=== PATIENT | male | born 1990 | race Caucasian/White ===

== ENCOUNTER → 2020-06-03 11:04 | Outpatient (CLI) | payer OTHER, SELFPAY ==
[2020-06-03 20:43] LABS: SARS-CoV-2 RNA PCR Negative
== END ==
PROVIDERS: PCP Family Medicine; Visit Provider Family Medicine
DX: Z20.822 Contact with and (suspected) exposure to COVID-19 (principal)
CPT/HCPCS: C9803; U0003; U0005

== ENCOUNTER 2021-09-21 10:06 | Emergency (ER) | payer OTHER, SELFPAY ==
--- NOTE | 2021-09-21 10:24 | ED.EYEPROB ---
HPI - Eye Problem General Chief complaint: Eye Problems Stated complaint: stye lt eye Time Seen by Provider: 09/21/21 10:24 Source: patient, RN notes reviewed and old records reviewed Mode of arrival: ambulatory Limitations: no limitations History of Present Illness HPI Narrative: 31 year old male who presents to [facility] care with complaints of left eye stye to upper eyelid for the past 1.5 months. Patient reports that he has been applying warm compresses and using OTC stye drops with symptoms worsening in the past 5 days. Patient denies any change in his vision with visual acuity left eye 20/15. right 20/20 without corrective lens chief complaint: other (Stye left eye) Onset (ago): month(s) (1.5) Onset description: gradual Location: left eye Severity scale (1-10): 1 If Pain, Quality: aching Treatments Prior to Arrival: OTC eye drops and other (warm compresses) Related Data Allergies Allergy/AdvReac Type Severity Reaction Status Date / Time amoxicillin Allergy Unknown Verified 09/21/21 10:30 KIDDIE COCKTAIL Allergy Unknown Uncoded 09/21/21 10:30 (JAMIE MENDEZ) Review of Systems Review of Systems: CONSTITUTIONAL: Denies fever, chills, or sweats. EYES: Denies visual changes, redness to left upper eyelid with raised red lesion, no discharge. ENT: Denies rhinorrhea, congestion, sore throat, or otalgia. CARDIOVASCULAR: Denies chest pain, palpitations, or edema. RESPIRATORY: Denies cough or dyspnea. GASTROINTESTINAL: Denies abdominal pain, nausea, vomiting, or diarrhea. GENITOURINARY: Denies dysuria or hematuria. SKIN: Denies rash or itching. MUSCULOSKELETAL: Denies back pain, joint pain, or myalgia. NEUROLOGIC: Denies headache, numbness, or weakness. PSYCHIATRIC: Denies anxiety or depression. All systems reviewed & are unremarkable except as noted in HPI and below PMFSH Past Medical History Medical History (Updated 09/21/21 @ 10:54 by Amara Woodall NP) Bilateral elbow fractures Fracture of left zygomatic arch Nasal fracture Open fracture of left forearm surgical repair Open fracture of left hip with natacha and pins Osteogenesis imperfecta type I Stye Social History Social History (Updated 09/21/21 @ 10:46 by Amara Woodall NP) Smoking status: Never smoker Alcohol intake: current Alcohol use details: rare Substance use: never Living arrangements: with family Gender identity (if verbalized by the patient): Male Comments At time of signature, agree with nursing past medical, surgical, social and family history. There is no relevant family history pertinent to the presenting complaint Exam Narrative: GENERAL: Well-appearing, well-nourished, and in no acute distress. HEAD: Normocephalic, atraumatic. EYES: PERRLA and EOMI. swelling and redness to left upper eyelid with raised lesion, no drainage noted,no visual changes visual acuity left eye 20/15, right 20/20 no corrective lens ENT: Nares clear, no rhinorrhea or epistaxis. Mucous membranes moist.TM's normal with good light reflex, throat pink with no lesions or exudates or tonsil swelling. NECK: Supple. no lymphadenopathy CHEST: Clear to auscultation. No respiratory distress.SAO2 99% on room air HEART: Regular rate and rhythm. No murmur heard. Normal peripheral pulses. ABDOMEN: Soft, nontender, nondistended, normal active bowel sounds. EXTREMITIES: Normal range of motion. No edema. SKIN: Warm, dry, no rash. NEURO: No focal deficits. Alert and oriented x3. Course Course Level of Care: Express Care Visit MDM - Eye Problem Differential Diagnosis Differential diagnosis: Likely corneal abrasion, conjunctivitis, periorbital cellulitis and other (Stye, chalazion) Medical Records Attestation: I reviewed the patient's medical records. Lab Data Attestation: I reviewed the patient's lab results. Critical Care Time Critical Care Time Critical Care Time: No Discharge Plan Discharge Clinical Impression: Hordeolum externum left upper eyel
[2021-09-21 10:25] VITALS: BP 130/77; PULSE 65; RESP 18; TEMP 37.3; O2SAT 99
== END 2021-09-21 10:44 | disposition home or self-care (01) ==
PROVIDERS: Emergency Provider Registered Nurse
DX: H00.014 Hordeolum externum left upper eyelid (principal)
CPT/HCPCS: 99213; G0463

== ENCOUNTER 2022-07-11 09:00 | Emergency (ER) | payer OTHER, SELFPAY ==
[2022-07-11 09:14] VITALS: BP 109/84; PULSE 80; RESP 18; TEMP 36.3; O2SAT 100
--- NOTE | 2022-07-11 09:42 | ED.URI ---
HPI - URI/Sore Throat General Chief Complaint: Upper Respiratory Infection Stated Complaint: Sore Throat,Cough,Fatigue,Body Aches Source: patient Mode of arrival: ambulatory Limitations: no limitations History of Present Illness HPI Narrative: 32-year-old male presents to [facility] with complaints cough, sore throat, body aches, chills, runny nose and nasal congestion for the past 3 days. Patient reports that he took [id number] Tylenol day 1 but has not tried taking any over the counter medications for his symptoms since then. Patient denies fever, wheezing, nausea, vomiting or diarrhea. Patient reports that his daughter was diagnosed with croup 1 week ago. Patient reports that his mother and currently have similar cold-like symptoms. Patient is a nonsmoker. Patient denies recent trauma. MD elicited complaint: sore throat, rhinorrhea and nasal congestion Onset (ago): day(s) (3) Able to tolerate fluids by mouth: Yes Exacerbating factors: swallowing Treatments prior to arrival: acetaminophen Related Data Allergies Allergy/AdvReac Type Severity Reaction Status Date / Time amoxicillin AdvReac Mild Hives Verified 07/11/22 09:04 KIDDIE COCKTAIL AdvReac Mild Hives Uncoded 07/11/22 09:04 (JAMIE MENDEZ) Review of Systems Constitutional: Constitutional: Reports chills, Reports fatigue, Denies fever(s) and Denies weakness ENT: Denies dizziness, Denies epistaxis, Reports nasal congestion and Reports sore throat Respiratory: Respiratory: Denies chest congestion, Reports cough, Reports dyspnea and Denies wheezing Gastrointestinal: Gastrointestinal: Denies diarrhea, Denies nausea and Denies vomiting Integumentary/Breasts: Skin/Breast: Denies rash Neurologic: Denies dizziness, Denies syncope and Denies headache(s) [facility] Past Medical History Medical History Bilateral elbow fractures Fracture of left zygomatic arch Nasal fracture Open fracture of left forearm surgical repair Open fracture of left hip with natacha and pins Osteogenesis imperfecta type I Stye Social History Social History Smoking status: Never smoker Alcohol intake: current Alcohol use details: rare Substance use: never Living arrangements: with family Gender identity (if verbalized by the patient): Male Comments At time of signature, I agree with nursing past medical, surgical, social and family history. There is no relevant family history pertinent to the presenting complaint. Exam Const: General: healthy appearing and no acute distress Nutritional Appearance: well nourished Orientation/consciousness: patient oriented x3 Limitations: no limitations HENMT: Head: normal to inspection Ears: external ears normal, TM's normal bilaterally and EAC's normal Face/Nose/Sinus: Normal external nose present and Normal nares present Mouth: Yes Normal oral and palatal mucosa present, Yes lip normal and Yes moist mucous membranes Throat: uvula midline Other: Mild erythema noted to posterior pharynx. Tonsils appear within normal limits Eyes: Conjunctivae: conjunctivae normal Neck: Neck: normal visual inspection Resp: Effort & Inspection: normal respiratory effort and not labored Auscultation: clear to auscultation bilaterally, no crackles, no rales and no rhonchi Cardio: Rate: regular rate Rhythm: regular rhythm Heart sounds: no murmurs Skin: General skin exam: normal color Neuro: General: patient oriented x3 Speech: normal speech Gait exam (Neuro): Normal gait present Psych: Affect: normal affect Attitude: cooperative Course Course Level of Care: Express Care Visit Vital Signs Vital signs: Vital Signs Temperature 36.3 C L 07/11/22 09:14 Pulse Rate 80 07/11/22 09:14 Respiratory Rate 18 07/11/22 09:14 Blood Pressure 109/84 07/11/22 09:14 Pulse Oximetry 100 07/11/22 09:14 Oxygen Delivery Ro
== END 2022-07-11 09:50 | disposition home or self-care (01) ==
PROVIDERS: Emergency Provider Nurse Practitioner Family
DX: B34.9 Viral infection, unspecified (principal); Z20.822 Contact with and (suspected) exposure to COVID-19; Q78.0 Osteogenesis imperfecta
CPT/HCPCS: 87081; 87426; 87880; 99213; C9803; G0463

== ENCOUNTER 2022-11-11 18:19 | Emergency (ER) | payer OTHER, SELFPAY ==
--- NOTE | ~2022-11-11 | XR_ITS ---
EXAMINATION: XR ankle RT min 3V INDICATION: Right ankle pain TECHNIQUE: Four views of the right ankle are obtained. COMPARISON: None available FINDINGS: Bone alignment is normal. There is no fracture. The soft tissues are unremarkable. IMPRESSION: 1. No acute osseous abnormality. Reviewed, dictated and finalized at location F.
[2022-11-11 18:22] VITALS: BP 146/86; PULSE 90; RESP 18; TEMP 36.3; O2SAT 100
--- NOTE | 2022-11-11 18:43 | ED.LOWEXIN ---
HPI - Extremity Injury (Lower) General Chief Complaint: Extremity Injury, Lower <Morenita Andersen APRN - Last Filed: 11/11/22 21:11> Stated Complaint: Right Ankle Injury <Morenita Andersen APRN - Last Filed: 11/11/22 21:11> Time Seen by Provider: 11/11/22 18:40 <Morenita Andersen APRN - Last Filed: 11/11/22 21:11> Source: patient <Morenita Andersen APRN - Last Filed: 11/11/22 21:11> Mode of arrival: ambulatory <Morenita Andersen APRN - Last Filed: 11/11/22 21:11> Limitations: no limitations <Morenita Andersen APRN - Last Filed: 11/11/22 21:11> History of Present Illness HPI Narrative: Patient is a very pleasant 32-year-old male with a past medical history of osteogenesis imperfecta who presents emergency department today by private vehicle ambulatory with a slight limp for evaluation of pain to the back of the right ankle. The pain started while playing basketball he denies any traumatic fall occurring he states that suddenly he felt something pop or almost tear & he was not able to bear weight after. He states there is no numbness or tingling & the pain is a 7/10 when moving it or trying to bear weight. He denies any pain to the toes, upper leg or knee. Denies any other symptoms or concerns at this time. He not take anything prior to arrival for pain. <Morenita Andersen APRN - Last Filed: 11/11/22 21:11> Related Data Allergies/Adverse Reactions: Allergies Allergy/AdvReac Type Severity Reaction Status Date / Time amoxicillin AdvReac Mild Hives Verified 11/11/22 18:26 KIDDIE COCKTAIL AdvReac Mild Hives Uncoded 11/11/22 18:26 (DEMEROL,PENERGAN) <Morenita Andersen APRN - Last Filed: 11/11/22 21:11> Review of Systems Review of Systems: CONSTITUTIONAL: Denies fever, chills, or sweats. EYES: Denies visual changes, redness, or discharge. ENT: Denies rhinorrhea, congestion, sore throat, or otalgia. CARDIOVASCULAR: Denies chest pain, palpitations, or edema. RESPIRATORY: Denies cough or dyspnea. GASTROINTESTINAL: Denies abdominal pain, nausea, vomiting, or diarrhea. GENITOURINARY: Denies dysuria or hematuria. SKIN: Denies rash or itching. MUSCULOSKELETAL: Denies back pain, right posterior ankle/achiilles pain. NEUROLOGIC: Denies headache, numbness, or weakness. PSYCHIATRIC: Denies anxiety or depression. <Morenita Andersen APRN - Last Filed: 11/11/22 21:11> All systems reviewed & are unremarkable except as noted in HPI and below <Morenita Andersen APRN - Last Filed: 11/11/22 21:11> PMFSH Past Medical History Medical History: Medical History Bilateral elbow fractures Fracture of left zygomatic arch Nasal fracture Open fracture of left forearm surgical repair Open fracture of left hip with natacha and pins Osteogenesis imperfecta type I Stye <Morenita Andersen APRN - Last Filed: 11/11/22 21:11> Social History Social History: Social History Smoking status: Never smoker Alcohol intake: current Alcohol use details: rare Substance use: never Living arrangements: with family Gender identity (if verbalized by the patient): Male <Morenita Andersen APRN - Last Filed: 11/11/22 21:11> Exam Narrative: GENERAL: Well-appearing, well-nourished, and in no acute distress. sitting up on exam chair. HEAD: Normocephalic, atraumatic. EYES: PERRLA and EOMI. ENT: Nares clear, no rhinorrhea or epistaxis. Mucous membranes moist. NECK: Supple. CHEST: Clear to auscultation. No respiratory distress. HEART: Regular rate and rhythm. No murmur heard. Normal peripheral pulses. 2+ right pedal pulse ABDOMEN: Soft, nontender, nondistended, normal active bowel sounds. EXTREMITIES: decreased ROM to right ankle- there is no tenderness over the medial/ lateral Tenderness/swelling to the right achilles with defect. + Tobias test of the right achilles. no tenderness over the distal tib/fi
[2022-11-11] MEDS: KETOROLAC 30 MG/ML VIAL (*BKC) IM (19:56)
== END 2022-11-11 20:35 | disposition home or self-care (01) ==
PROVIDERS: Emergency Provider Nurse Practitioner; PCP Nurse Practitioner Adult Health
DX: S86.001A Unspecified injury of right Achilles tendon, initial encounter (principal); Q78.0 Osteogenesis imperfecta; X50.9XXA Other and unspecified overexertion or strenuous movements or postures, initial encounter; Y93.67 Activity, basketball
CPT/HCPCS: 29505; 29515; 73610; 96372; 99283; J1885

== ENCOUNTER 2022-11-24 08:02 | Outpatient (CLI) | payer OTHER, SELFPAY ==
--- NOTE | ~2022-11-24 | MR_ITS ---
EXAMINATION: MR ankle RT wo con DATE: 11/24/2022 08:44 INDICATION: Achilles tendon rupture TECHNIQUE: Magnetic resonance imaging (MRI) of the right ankle was performed without intravenous cont rast. Sequences included sagittal, coronal, and axial proton-density weighted fast spin echo without and with fat saturation. COMPARISON: None. FINDINGS: Medial ankle ligaments: Deep and superficial deltoid ligaments as well as the spring ligament are normal. Lateral ankle ligaments: The anterior and posterior inferior tibiofibular ligaments are normal. The anterior talofibular, calc aneofibular and posterior talofibular ligaments are normal. Tendons: Severe Achilles tendinosis with full-thickness tear and approximately 3 cm separation of the ragged t ear margins suggesting a slightly greater degree of posterior retraction. The distal tear margin begi ns approximately 7 cm proximal to the calcaneal insertion. In length along the proximal and distal te ar margins the tendinosis extends 4 cm from the tear margins. There is a tear of the superior peronea l retinaculum resulting in lateral and anterior subluxation of the peroneus longus tendon which lies along the anterolateral margin of the lateral malleolus. The peroneus brevis tendon maintains a deana l course however there is low-lying peroneus brevis muscle belly with the distal most margin of the m yotendinous junction lying 12 mm below the distal tip of the lateral malleolus. There are peroneus lo ngus and brevis tendons are otherwise normal. The tibialis anterior and extensor hallucis longus and extensor digitorum longus tendons are normal. The tibialis posterior, flexor digitorum longus and fle xor hallucis longus tendons are normal. Plantar fascia: Plantar aponeurosis is normal. Bones/other: Bone alignment is normal. No fracture or pathologic marrow replacing process. Mild osteoarthritis at the ankle joint with partial-thickness cartilage loss resulting in mild nonuniform joint space narrow ing anteriorly and with small regions of mild subarticular edema-like signal change at the central as pect of the tibial plafond and anterior margin of the talar dome. Additional mild osteoarthritis at t he talonavicular joint. Fluid: Physiologic amount of fluid in the joint spaces. There is minimal fluid interspersed among the torn A chilles tendon fibers. No tenosynovitis, bursitis or other abnormal fluid collections. IMPRESSION: 1. Full-thickness Achilles tendon tear with severe tendinosis. 2. Tear of the superior peroneal retinaculum with dislocation of the peroneus longus tendon which now lies along the anterolateral margin of the lateral malleolus. Reviewed, dictated and finalized at location A. IMPRESSION: 1. Full-thickness Achilles tendon tear with severe tendinosis. 2. Tear of the superior peroneal retinaculum with dislocation of the peroneus l ongus tendon which now lies along the anterolateral margin of the lateral malle olus.
== END 2022-11-24 08:03 ==
LOC: MICIMG 08:04
PROVIDERS: PCP Orthopaedic Surgery; Visit Provider Orthopaedic Surgery
DX: S86.011A Strain of right Achilles tendon, initial encounter (principal); S96.811A Strain of other specified muscles and tendons at ankle and foot level, right foot, initial encounter; X58.XXXA Exposure to other specified factors, initial encounter
CPT/HCPCS: 73721

== ENCOUNTER 2024-03-26 02:53 | Emergency (ER) | payer OTHER, SELFPAY ==
--- NOTE | ~2024-03-26 | CT_ITS ---
CT of the Abdomen and Pelvis: Indication: Abdominal pain Technique: 2.5 mm axial scans were obtained through the abdomen and pelvis following intravenous adm inistration of 100 cc of Omnipaque 350. Dose reduction technique was used on this scan by utilizing a utomated exposure control and iterative reconstruction technique. The dose-length product (DLP) was 3 29.45 mGy-cm. Findings: Scans through the lung bases are unremarkable. The liver, spleen, pancreas, gallbladder, adrenals and kidneys are within normal limits. No evidence of aortic aneurysm. No lymphadenopathy. No bowel obstruction or bowel wall thickening. Fluid-filled small bowel loops are present in the righ t abdomen. Images through the pelvis were performed. Urinary bladder unremarkable. No pelvic mass seen. No ascit es. Impression: Questionable diarrheal illness. No other significant findings. Reviewed, dictated and finalized at [facility]. LY REQUIREMENTS OFFICER Impression: Questionable diarrheal illness. No other significant findings.
[2024-03-26 02:56] VITALS: BP 139/100; PULSE 113; RESP 20; TEMP 36.7; O2SAT 100
[2024-03-26 03:13] LABS: Basophils Absolute Auto 0.1 K/mm3 (0.0-0.1); Basophils Percent Auto 0.5 % (0.2-1.2); Eosinophils Percent Auto 0.1 % (0-4.4); Hematocrit 47.5 % (42.0-52.0); Hemoglobin 17.8 g/dL (14.0-18.0); Immature Granulocyte Absolute 0.09 K/mm3 (0.00-0.031); Immature Granulocyte Percent A 0.5 % (0-0.5); Lymphocytes Absolute Auto 0.45 K/mm3 (0.9-3.2); Lymphocytes Percent Auto 2.5 % (18.3-44.2); Mean Corpuscular HGB Conc 37.5 g/dl (32-36); Mean Corpuscular Hemoglobin 33.1 pg (26-34); Mean Corpuscular Volume 88.3 fl (80-100); Mean Platelet Volume 9.9 fl (7.4-10.4); Monocytes Absolute Auto 0.9 K/mm3 (0.1-0.6); Monocytes Percent Auto 4.8 % (2.6-8.5); Neutrophils Absolute Auto 16.5 K/mm3 (1.3-6.7); Neutrophils Percent Auto 91.6 % (45.5-73.1); Platelet Count Result 203 k/mm3 (150-375); Red Blood Count 5.38 M/mm3 (4.6-6.20); Red Cell Distribution Width 11.6 % (11.5-14.5)
[2024-03-26] MEDS: SODIUM CHLORIDE 0.9% IV 1,000 ML 999 ML IV CONT ×2 (03:17→03:30)
[2024-03-26] MEDS: ONDANSETRON INJ 4 MG/2 ML VIAL IV PUSH (03:17)
[2024-03-26 03:23] LABS: Alanine Aminotransferase 36 U/L (6-50); Alkaline Phosphatase 116 U/L (38-126); Anion Gap 10 mmol/L (4-12); Aspartate Amino Transferase 28 U/L (17-59); Bilirubin,Total 1.3 mg/dL (0.2-1.3); Blood Urea Nitrogen 25 mg/dL (9-20); Calcium 9.7 mg/dL (8.4-10.2); Carbon Dioxide 23 mmol/L (22-30); Chloride 103 mmol/L (98-107); Estimated CRCL calculation 82 ml/min; Estimated Glomerular Filt Rate > 60; Glucose 142 mg/dL (65-110); Lipase 168 U/L (23-300); Potassium 3.9 mmol/L (3.4-5.0); Sodium 136 mmol/L (137-145)
[2024-03-26] MEDS: DICYCLOMINE HCL INJ 20 MG/2 ML VIAL IM (03:29)
[2024-03-26 03:41] LABS: Hypochromasia 1+; Platelet Estimate Adequate (Adequate)
[2024-03-26 03:42] LABS: Anisocytosis 1+; Schistocytes None Seen
--- NOTE | 2024-03-26 04:14 | ED.GENADULT ---
HPI - General Adult General Chief complaint: Nausea/Vomiting/Diarrhea Stated complaint: n/v/d Time Seen by Provider: 03/26/24 03:15 History of Present Illness HPI narrative: patient 34-year-old gentleman who presents emergency department with chief complaint of nausea vomiting abdominal pain. Patient reports the pain and vomiting started around 6:00 p.m. patient reports that his had similar symptoms and is currently and was admitted at [place]. Patient reports that he has been unable to keep anything down also had multiple episodes of diarrhea. Patient states that his muscles are cramping Related Data Allergies Allergy/AdvReac Type Severity Reaction Status Date / Time amoxicillin AdvReac Mild Hives Verified 03/26/24 02:55 KIDDIE COCKTAIL AdvReac Mild Hives Uncoded 03/26/24 02:55 (JAMIE MENDEZ) Review of Systems Review of Systems: A 10 system review of systems was completed on the patient and is negative except for what is stated in the HPI. Nursing and ancillary documentation was reviewed. [facility] Past Medical History Medical History Stye Bilateral elbow fractures Open fracture of left forearm surgical repair Open fracture of left hip with natacha and pins Nasal fracture Fracture of left zygomatic arch Osteogenesis imperfecta type I Social History Social History Smoking status: Never smoker Alcohol intake: current Alcohol use details: rare Substance use: never Living arrangements: with family Gender identity (if verbalized by the patient): Male Exam Narrative: GENERAL: Well-appearing, well-nourished, and in moderate acute distress. HEAD: Normocephalic, atraumatic. EYES: PERRLA and EOMI. ENT: Nares clear, no rhinorrhea or epistaxis. Mucous membranes moist. NECK: Supple. CHEST: Clear to auscultation. No respiratory distress. HEART: Regular rate and rhythm. No murmur heard. Normal peripheral pulses. ABDOMEN: Soft, diffusely tender, nondistended, normal active bowel sounds. EXTREMITIES: Normal range of motion. No edema. SKIN: Warm, dry, no rash. NEURO: No focal deficits. Alert and oriented x3. PSYCH: Normal mood and affect. Course Vital Signs Vital signs: Vital Signs Temperature 36.7 C 12/17/24 02:56 Pulse Rate 113 H 03/26/24 02:56 Respiratory Rate 20 03/26/24 02:56 Blood Pressure 139/100 H 03/26/24 02:56 Pulse Oximetry 100 03/26/24 02:56 Temperature 36.7 C 03/26/24 02:56 Pulse Rate 106 H 03/26/24 05:12 Respiratory Rate 20 03/26/24 05:12 Blood Pressure 114/80 03/26/24 05:12 Pulse Oximetry 100 03/26/24 05:12 Medical Decision Making MDM Narrative Medical decision making narrative: differential diagnosis includes gastroenteritis, intra-abdominal infection, UTI, dehydration laboratory studies were obtained on the patient showed a white count of 18 electrolytes within normal limits urinalysis showed 1+ ketones and specific gravity 1.[address] scan was obtained that showed no evidence of diverticulitis colitis, appendicitis. There was evidence of diarrheal illness Vital Signs Vital Signs: Vital Signs Temperature 36.7 C 03/26/24 02:56 Pulse Rate 113 H 03/26/24 02:56 Respiratory Rate 20 03/26/24 02:56 Blood Pressure 139/100 H 03/26/24 02:56 Pulse Oximetry 100 03/26/24 02:56 Temperature 36.7 C 03/26/24 02:56 Pulse Rate 106 H 03/26/24 05:12 Respiratory Rate 20 03/26/24 05:12 Blood Pressure 114/80 03/26/24 05:12 Pulse Oximetry 100 03/26/24 05:12 Lab Data 03/26/24 03:06 03/26/24 03:06 Labs: Lab Results 03/26/24 03/26/24 Range/Units 03:06 04:41 WBC 18.0 H (4.5-10.0) K/mm3 RBC 5.38 (4.6-6.20) M/mm3 Hgb 17.8 (14.0-18.0) g/dL Hct 47.5 (42.0-52.0) % MCV 88.3 (80-100) fl MCH 33.1 (26-34) pg MCHC 37.5 H (32-36) g/dl RDW 11.6 (11.5-14.5) % Plt Count 203 (150-375) k/mm3 MPV 9.9 (7.4-10.4) fl Immature Gran % (Auto) 0.5 (0-0.5) % Neut % (Auto) 91.6 H (45.5-73.1) % Lymph % (Auto) 2.5 L (18.3-44.2) % [place] % (Auto) 4.8 (2.6-8.5) % Eos % (Auto) 0.1 (0-4.4) % Baso % (Auto) 0.5 (0.2-1.2) % Lymph # (Auto) 0.45 L (0.9-3.2) K/mm3 [place] # (Auto) 0.9 H (0.1-0.6) K/mm3 Eos # (Auto) 0.0 (0-0.3) K/mm3 Baso # (Auto) 0.1 (0.0-0.1) K/mm3 Abs Immat Gran (auto) 0.09 H (0.00-0.031) K/mm3 Absolute Neuts (auto) 16.5 H (1.3-6.7) K/mm3 Absolute Nucleated RBC 0.000 (0.0-0.012) K/mm3 Nucleated RBC % 0.0 (0.0-0.2) % Platelet Estimate Adequate (Adequate) Hypochromasia 1+ Anisocytosis 1+ Schistocytes None seen Sodium 136 L (137-145) mmol/L Potassium 3.9 (3.4-5.0) mmol/L Chloride 103 (98-107) mmol/L Carbon Dioxide 23 (22-30) mmol/L Anion Gap 10 (4-12) mmol/L BUN 25 H (9-20) mg/dL Creatinine 1.10 (0.7-1.3) mg/dL Estim Creat Clear Calc 82 ml/min Estimated GFR > 60 (59 - ) Glucose 142 H (65-110) mg/dL Calcium 9.7 (8.4-10.2) mg/dL Total Bilirubin 1.3 (0.2-1.3) mg/dL AST 28 (17-59) U/L ALT 36 (6-50) U/L Alkaline Phosphatase 116 (38-126) U/L Total Protein 9.0 H (6.3-8.2) g/dL Albumin 5.0 (3.5-5.1) g/dL Lipase 168 (23-300) U/L Urine Color Yellow (Yellow) Urine Appearance Clear (Clear) Urine pH 6.5 (5.0-9.0) Ur Specific [place] 1.022 (1.001-1.035) Urine Protein Negative (Negative) mg/dL Urine Glucose (UA) Negative (Negative) mg/dL Urine Ketones 1+ H (Negative) mg/dL Ur Blood (Man) Negative (Negative) Urine Nitrate Negative (Negative) Urine Bilirubin Negative (Negative) Urine Urobilinogen 0.2 (<2.0) mg/dL Leukocyte Esterase Rfl Negative (Negative) SHAILESH/UL Discharge Plan Discharge Clinical Impression: Gastroenteritis Patient Disposition: Home, Self-Care Condition: Stable Instructions: Antibiotic Form, Gastroenteritis (ED), Abdominal Pain (ED) Patient Language: [place] Prescriptions: New ondansetron 4 mg tablet,disintegrating 4 mg PO Q8H PRN (Reason: nausea and vomiting) Qty: 20 0RF dicyclomine 20 mg tablet 20 mg PO QID PRN (Reason: abdominal discomfort) Qty: 20 0RF No Action loratadine [Claritin] 10 mg tablet 10 mg PO DAILY Qty: 30 0RF methylprednisolone [Medrol (Micky)] 4 mg tablets,dose pack See Rx Instructions .ROUTE .COMPLEX Qty: 21 0RF Rx Instructions: orally per package directions benzonatate 100 mg capsule 100 mg PO TID PRN (Reason: cough) Qty: 20 0RF diclofenac potassium 50 mg tablet 50 mg PO TID PRN (Reason: pain) Qty: 20 0RF Follow-up/Referrals: PHYSICIAN,FINISH MENDER [Primary Care Provider] - Ksai Oropeza MD [Physician] - Time of Disposition: 06:43
[2024-03-26 04:54] LABS: Add Urine Microscopic? NO; Appearance Urine Clear (Clear); Bilirubin Urine Negative (Negative); Blood Urine Negative (Negative); Color Urine Yellow (Yellow); Glucose Urine UA Negative (Negative); Ketones Urine 1+ mg/dL (Negative); Leukocyte Esterase Ur Negative LEU/UL (Negative); Nitrate Urine Negative (Negative); Protein Urine Negative (Negative); Specific Grav Ur 1.022 (1.001-1.035); Urobilinogen Urine 0.2 mg/dL (<2.0); pH Urine 6.5 (5.0-9.0)
[2024-03-26 05:12] VITALS: BP 114/80; PULSE 106; RESP 20; O2SAT 100
[2024-03-26] MEDS: PANTOPRAZOLE SODIUM IV 40 MG VIAL IV PUSH (06:27)
== END 2024-03-26 06:57 | disposition home or self-care (01) ==
PROVIDERS: Emergency Provider Emergency Medicine
DX: K52.9 Noninfective gastroenteritis and colitis, unspecified (principal); Q78.0 Osteogenesis imperfecta
CPT/HCPCS: 36415; 74177; 80053; 81003; 83690; 85025; 96361; 96372; 96374; 96375; 99284; J0500; J2405; J2470; J7030; Q9967